=== PATIENT | female | born 1950 | race African-American/Black ===

== ENCOUNTER 2023-01-14 11:45 | Inpatient (IN) | payer MEDICARE ==
[~2023-01-14] VITALS: Ht 165.1 cm; Wt 54.4 kg
--- NOTE | 2023-01-14 12:00 | NUR ---
BIBS FOR WITNESSED SYNCOPE AT HOME. DID NOT HIT HEAD OR LOSE CONSCIOUSNESS. PATIENT CONFUSED PER BASELINE, TOLERATING WELL ON ROOM AIR. WILL CONTINUE TO MONITOR.
--- NOTE | 2023-01-14 12:39 | NUR ---
Caro morrow in [facility] - 01/14/23 at 1240 by JACQUELINE 20 g L AC
--- NOTE | 2023-01-14 12:40 | NUR ---
BLOOD SAMPLES OBTAINED
[2023-01-14 12:44] LABS: BASOPHILS % (AUTO) 0.3 % (0.0-2.0); EOSINOPHILS % (AUTO) 2.3 % (0.0-6.0); HEMATOCRIT 35 % (33-45); HEMOGLOBIN 11.4 g/dL (11.5-14.8); LYMPHOCYTES # (AUTO) 1.6 K/uL (0.8-4.8); LYMPHOCYTES % (AUTO) 40.6 % (20.0-44.0); MEAN CORPUSCULAR HGB CONC 33 g/dl (31.0-36.0); MEAN CORPUSCULAR VOLUME 85 fL (82-100); MONOCYTES # (AUTO) 0.2 K/uL (0.1-1.30); MONOCYTES % (AUTO) 6.2 % (2.0-12.0); NEUTROPHILS # (AUTO) 1.9 K/uL (1.8-8.9); NEUTROPHILS % (AUTO) 50.6 % (43.0-81.0); PLATELET COUNT (AUTO) 219 K/uL (150-450); RED BLOOD CELL COUNT(AUTO) 4.13 MIL/uL (4.0-5.2); WHITE BLOOD COUNT (AUTO) 3.8 K/uL (4.3-11.0)
[2023-01-14 13:00] LABS: ALANINE AMINOTRANSFERASE 18 U/L (12-78); ALBUMIN 3.7 g/dL (3.4-5.0); ALKALINE PHOSPHATASE 91 U/L (46-116); ASPARTATE AMINOTRANSFERASE 14 U/L (15-37); BILIRUBIN,DIRECT 0.1 mg/dL (0.0-0.2); BILIRUBIN,TOTAL 0.6 mg/dL (0.2-1.0); CALCIUM, SERUM 9.6 mg/dL (8.5-10.1); CARBON DIOXIDE 29 mmol/L (21-32); CHLORIDE 106 mmol/L (98-107); CREATININE 0.8 mg/dL (0.6-1.3); GLUCOSE 130 mg/dL (74-106); SODIUM SERUM 143 mmol/L (136-145); UREA NITROGEN, BLOOD 23 mg/dL (7-18)
[2023-01-14 13:08] LABS: POTASSIUM 2.8 mmol/L (3.5-5.1)
[2023-01-14] MEDS ORDERED: POTASSIUM CL. PREMIX PERIPHER. 50 ML ONE ×2 (13:28→14:53)
--- NOTE | 2023-01-14 13:29 | NUR ---
ROOM 306-2
[2023-01-14] MEDS: POTASSIUM CL. PREMIX PERIPHER. 50 ML IV SCH ×4 (13:53→19:11)
--- NOTE | 2023-01-14 14:50 | NUR ---
REPORT GIVEN TO IRINEO CAMILO
[2023-01-14] MEDS ORDERED: ONDANSETRON HCL/PF 4 MG/2 ML VIAL IVP PRN (16:00)
[2023-01-14] MEDS ORDERED: ENOXAPARIN SODIUM 40 MG/0.4 ML DISP.SYRIN SQ SCH (16:00)
[2023-01-14] MEDS ORDERED: ACETAMINOPHEN 325 MG TABLET PO PRN (16:00)
[2023-01-14] MEDS ORDERED: ZOLPIDEM TARTRATE 5 MG TABLET PO PRN (16:00)
[2023-01-14] MEDS ORDERED: MAGNESIUM HYDROXIDE 30 ML UDC PO PRN (16:00)
[2023-01-14] MEDS ORDERED: Z GUARD REMEDY 4 OZ OINT TP PRN (16:00)
[2023-01-14] MEDS ORDERED: MAG HYDROX/AL HYDROX/SIMETH 30 ML UDC PO PRN (16:00)
--- NOTE | 2023-01-14 16:00 | NUR ---
TOURISM RADIO PRESENTER NOTES: PT CAME TO UNIT VIA GURNEY, RECEIVED REPORT BY PHONE FROM DIRECTOR HUMAN SERVICES. PT IS AWAKE, A/OX1, RESPONDS TO NAME ONLY, SPOUSE AND DAUGHTER AT BEDSIDE. ON RA WITH NO S/S OF SOB, VITALS WNL. IV ACCESS AT R FA#20, RUNNING 10 MEQ OF KCL. PLACED ON TELE MONITOR, READING SR, HR= 55. SKIN ASSESSED, IS INTACT AND NO ISSUES NOTED. BELONGINGS CHECKED AND SIGNED. MADE PT COMFORTABLE, ORIENTED PT AND FAMILY TO STAFF AND ROOM. CALL LIGHT AND TABLE WITHIN EASY REACH, ENCOURAGED PT AND FAMILY TO PRESS CALL LIGHT FOR HELP. ALL SAFETY MEASURES IN PLACE, WILL CONT WITH PLAN OF CARE DURING SHIFT.
[2023-01-14] MEDS: IV NS 0.9% 1,000 ML IV PRN (17:21)
--- NOTE | 2023-01-14 19:30 | NUR ---
GUM REMOVER OPENING NOTES RECEIVED PT IN BED AWAKE, AND DAUGHTER AT BEDSIDE. A/O X0, PT VERY CONFUSED, VERBAL BUT DOESN'T RESPOND WELL TO QUESTIONS. ON RA WITH NO SOB OR DISTRESS NOTED. NO PAIN NOTED. ON SUBWAY CAR REPAIRER READING SB, 55 HR. RAC IV REMOVED BY PATIENT, NEW LINE LFA #20G PUT IN PLACE, PATENT, INTACT, FLUSHING WELL. COVERED TO PREVENT PT FROM PULLING. ABLE TO GO TO RESTROOM WITH ASSIST. SAFETY MEASURES IN PLACE: BED LOCKED AND IN LOW POSITION, SIDE RAILS UP X3, BED ALARM ON, CALL LIGHT WITHIN REACH. WILL CONTINUE TO MONITOR AND ASSIST.
[2023-01-14 20:00] VITALS: BP 144/69; TEMP 98.4; O2SAT 98
--- NOTE | 2023-01-14 20:10 | NUR ---
RN CLOSING NOTES: PT REMAINS STABLE ON RA, SPOUSE REMAINED AT BEDSIDE. IV ACCESS DISLODGED, PM RN WAS ABLE TO REINSERT, OTHERWISE NO CHANGE IN CONDITION, ENDORSED TO PM SHIFT.
--- NOTE | 2023-01-14 22:45 | NUR ---
RN NOTE: GAGE, DAUGHTER, AT BEDSIDE. PT ATE ONE OF THE LEAD ELECTRODES, ABLE TO TAKE OUT FROM MOUTH. PT ALSO REMOVED IV LINE AT START OF SHIFT. PER FAMILY, PT TRIES TO GET OUT OF BED AT HOME. TURNER MAJOR NOTIFIED, ORDERED BILATERAL SOFT WRIST RESTRAINTS. DAUGHTER AND ARE OK WITH ORDER.
[2023-01-15] VITALS (7 sets, daily range): BP systolic 123–151; BP diastolic 53–77; TEMP 97.6–98.4; O2SAT 97–100
--- NOTE | 2023-01-15 04:00 | NUR ---
RN NOTE: TRIED TO GET ORTHOSTATIC BP, PT UNABLE TO STAND AT THIS TIME DUE TREMORS AND PT VERY CONFUSED. ABLE TO GET BP SUPINE (132/76 BP, 53 HR) AND SITTING AFTER 5 MINS (152/76 BP, 53 HR). WILL ENDORSE TO DAY SHIFT NURSE FOR REPEAT WHEN FAMILY IS AT BEDSIDE.
[2023-01-15 06:10] LABS: CALCIUM, SERUM 9.2 mg/dL (8.5-10.1); CREATININE 0.7 mg/dL (0.6-1.3); MAGNESIUM 1.9 mg/dL (1.8-2.4); PHOSPHORUS 2.6 mg/dL (2.5-4.9); POTASSIUM 3.3 mmol/L (3.5-5.1)
[2023-01-15 06:22] LABS: THYROID STIMULATING HORMONE 1.575 uIU/mL (0.358-3.74)
[2023-01-15 06:28] LABS: BASOPHILS % (AUTO) 0.4 % (0.0-2.0); EOSINOPHILS % (AUTO) 1.5 % (0.0-6.0); HEMATOCRIT 32 % (33-45); HEMOGLOBIN 10.4 g/dL (11.5-14.8); LYMPHOCYTES # (AUTO) 2.4 K/uL (0.8-4.8); LYMPHOCYTES % (AUTO) 44.4 % (20.0-44.0); MEAN CORPUSCULAR HGB CONC 33 g/dl (31.0-36.0); MEAN CORPUSCULAR VOLUME 85 fL (82-100); MONOCYTES # (AUTO) 0.4 K/uL (0.1-1.30); MONOCYTES % (AUTO) 6.8 % (2.0-12.0); NEUTROPHILS # (AUTO) 2.5 K/uL (1.8-8.9); NEUTROPHILS % (AUTO) 46.9 % (43.0-81.0); PLATELET COUNT (AUTO) 194 K/uL (150-450); RED BLOOD CELL COUNT(AUTO) 3.77 MIL/uL (4.0-5.2); WHITE BLOOD COUNT (AUTO) 5.4 K/uL (4.3-11.0)
--- NOTE | 2023-01-15 07:00 | NUR ---
DIRECTOR HR COMMUNICATIONS CLOSING NOTES PT IN BED AWAKE. A/O X0, PT VERY CONFUSED, VERBAL BUT DOESN'T RESPOND WELL TO QUESTIONS, TRIED TO GET OUT OF BED. STABLE ON RA WITH NO SOB OR DISTRESS NOTED. NO PAIN NOTED. ON NUTRITION AIDE READING SB, 50'S HR DURING SHIFT. LFA #20G PATENT, INTACT, FLUSHING WELL, RUNNING NS @ 75 ML/HR. COVERED TO PREVENT PT FROM PULLING. ON BILATERAL SOFT WRIST RESTRAINTS, CIRCULATION CHECKED REGULARLY, WNL. ALL CARE PROVIDED AND MEDS TOLERATED WELL. SAFETY MEASURES MAINTAINED: BED LOCKED AND IN LOW POSITION, SIDE RAILS UP X3, BED ALARM ON, CALL LIGHT WITHIN REACH. WILL ENDORSE [place] TO DAY SHIFT NURSE.
[2023-01-15] MEDS ORDERED: PANTOPRAZOLE 40 MG TABLET.DR PO SCH (07:30)
--- NOTE | 2023-01-15 07:50 | NUR ---
ECONOMIC FORECASTER OPENING NOTE (DAY SHIFT) RECEIVED PT IN BED AWAKE, DAUGHTER AT BEDSIDE. A/O X 0, PT VERY CONFUSED, VERBAL BUT DOESN'T RESPOND WELL TO QUESTIONS. ON RA WITH NO SOB OR DISTRESS NOTED. NO PAIN NOTED. ON CORRECTIONS NURSE READING SB, 50s HR RANGE. NEW LINE LFA #20G IS INTACT, PATENT, AND INFUSING ns @ 75 MlS/HR WELL. COVERED iv SITE TO PREVENT PT FROM PULLING. ABLE TO GO TO RESTROOM WITH ASSIST. SAFETY MEASURES IN PLACE: BED LOCKED AND IN LOW POSITION, SIDE RAILS UP X 3, BED ALARM ON, CALL LIGHT WITHIN REACH. RELAEASED BILATERAL WRIST RESTRAINTS FOR ROM AND PATIENT'S COMFORT AND THEN REAPPLIED FOR SAFETY. WILL CONTINUE TO MONITOR AND ASSIST PATIENT PER MD's POC.
[2023-01-15] MEDS: IV NS 0.9% 1,000 ML IV PRN (09:00)
[2023-01-15] MEDS ORDERED: POTASSIUM CHLORIDE 20 MEQ TAB.PRT.SR PO SCH (09:00)
[2023-01-15] MEDS: POTASSIUM CHLORIDE 20 MEQ TAB.PRT.SR PO ONE ×2 (09:02→09:30)
[2023-01-15] MEDS ORDERED: DONE10TA44 PO (09:03)
[2023-01-15] MEDS ORDERED: AMLO10TA4 PO (09:03)
[2023-01-15] MEDS ORDERED: CHLO25TA2 PO (09:03)
[2023-01-15] MEDS ORDERED: GABA-532 PO (09:03)
[2023-01-15 11:01] LABS: IRON, SERUM 64 ug/dl (50-175); TOTAL IRON BINDING CAPACITY 212 ug/dl (250-450)
[2023-01-15 11:14] LABS: CHOLESTEROL 184 mg/dL (<200); FERRITIN 97 ng/mL (8-388); HDL CHOLESTEROL 79 mg/dL (40-60); LDL 83 mg/dL (0-99); TRIGLYCERIDES 46 mg/dL (30-150)
--- NOTE | 2023-01-15 15:17 | NUR ---
HOUSEKEEPING CLEANERDECAY CONTROL OPERATOR TO HOME NOTE PATIENT TOLERATED WELL THE REMOVAL OF THE PIV CATHETER FULLY INTACT FROM THE LEFT FOREARM WITHOUT ANY SIGNS OF COMPLICATIONS OF IV THERAPY. PATIENT'S DAUGHTER, GAGE, [id number] UNDERSTANDING OF THE HOME CARE DISCHARGE INSTRUCTIONS USING THE TEACH BACK METHOD IN HER OWN WORDS. PATIENT'S DAUGHTER REFUSED TO WAIT FOR PHYSICAL THERAPY EVALUATION OF PATIENT'S ABILITY TO SAFELY BE MOBILE AT HOME BEFORE DEPARTING THE [facility]. PATIENT'S DAUGHTER STATED THAT THE FAMILY UNDERSTANDS RISK OF FALLS AND WILL VIGILANTLY MONITOR AND ASSIST PATIENT WITH WALKING, TRANSFERS, AND POSITIONING AT HOME. PATIENT DEPARTED [facility] AT 15:05 HOURS WALKING WITH STEADY GAIT ACCOMPANIED BY HER DAUGHTER AND TO PRIVATE CAR BOUND FOR HER HOME.
== END 2023-01-15 15:30 | disposition home or self-care (01) | DRG 641 ==
LOC: ER 11:49 → TELE 14:31
PROVIDERS: ADMIT Student in an Organized Health Care Education/Training Program; ATTEND Student in an Organized Health Care Education/Training Program
DX: E86.0 Dehydration (principal); E87.6 Hypokalemia; R55 Syncope and collapse; I10 Essential (primary) hypertension; F03.90 Unspecified dementia, unspecified severity, without behavioral disturbance, psychotic disturbance, mood disturbance, and anxiety; R79.89 Other specified abnormal findings of blood chemistry; I35.0 Nonrheumatic aortic (valve) stenosis; D64.9 Anemia, unspecified; Z91.81 History of falling
CPT/HCPCS: 36415; 71045-TC; 80048-TC; 80061-TC; 80076-TC; 82728-TC; 82962-TC; 83540-TC; 83735-TC; 83880; 84100-TC; 84443-TC; 84484-TC; 85025-TC; 87081-TC; 93307-TC; A4223; G0378; J1650; J3480; J7030

== ENCOUNTER 2024-07-19 12:19 | Emergency (ER) | payer MEDICARE, BC ==
[~2024-07-19] VITALS: Ht 167.6 cm; Wt 47.6 kg
[~2024-07-19 12:19] MED LIST: AMLO10TA4 PO; DONE10TA44 PO; GABA-532 PO
[2024-07-19 12:21] VITALS: TEMP 97.9
[2024-07-19] MEDS: IV NS 0.9% 1,000 ML BAG IV ONE (12:52)
[2024-07-19 12:57] LABS: BASOPHILS % (AUTO) 0.3 % (0.0-2.0); EOSINOPHILS % (AUTO) 0.5 % (0.0-6.0); HEMATOCRIT 38 % (33-45); HEMOGLOBIN 11.8 g/dL (11.5-14.8); LYMPHOCYTES # (AUTO) 1.6 K/uL (0.8-4.8); LYMPHOCYTES % (AUTO) 23.1 % (20.0-44.0); MEAN CORPUSCULAR HEMOGLOBIN 28 PG (26.0-33.0); MEAN CORPUSCULAR HGB CONC 32 g/dl (31.0-36.0); MEAN CORPUSCULAR VOLUME 90 fL (82-100); MONOCYTES # (AUTO) 0.6 K/uL (0.1-1.30); MONOCYTES % (AUTO) 8.3 % (2.0-12.0); NEUTROPHILS # (AUTO) 4.7 K/uL (1.8-8.9); NEUTROPHILS % (AUTO) 67.8 % (43.0-81.0); PLATELET COUNT (AUTO) 182 K/uL (150-450); RED BLOOD CELL COUNT(AUTO) 4.17 MIL/uL (4.0-5.2); RED CELL DISTRIBUTION WIDTH 14.7 % (11.5-15.0); WHITE BLOOD COUNT (AUTO) 6.9 K/uL (4.3-11.0)
[2024-07-19 13:25] LABS: CALCIUM, SERUM 9.8 mg/dL (8.5-10.1); CARBON DIOXIDE 29 mmol/L (21-32); CHLORIDE 106 mmol/L (98-107); GLUCOSE 196 mg/dL (74-106); POTASSIUM 4.2 mmol/L (3.5-5.1); SODIUM SERUM 142 mmol/L (136-145); UREA NITROGEN, BLOOD 24 mg/dL (7-18)
[2024-07-19 13:34] LABS: LACTIC ACID 2.2 mmol/L (0.4-2.0)
[2024-07-19 13:38] LABS: ALANINE AMINOTRANSFERASE 28 U/L (12-78); ALBUMIN 3.9 g/dL (3.4-5.0); ALKALINE PHOSPHATASE 105 U/L (46-116); ASPARTATE AMINOTRANSFERASE 26 U/L (15-37); BILIRUBIN,DIRECT 0.1 mg/dL (0.0-0.2); BILIRUBIN,TOTAL 0.6 mg/dL (0.2-1.0); TOTAL PROTEIN, SERUM 7.2 g/dL (6.4-8.2)
[2024-07-19 14:12] VITALS: BP 118/65; O2SAT 99
== END 2024-07-19 14:59 | disposition left against medical advice (07) ==
LOC: ER 12:29
DX: R55 Syncope and collapse (principal); R00.1 Bradycardia, unspecified; I95.9 Hypotension, unspecified; E86.0 Dehydration; E87.20 Acidosis, unspecified; F03.90 Unspecified dementia, unspecified severity, without behavioral disturbance, psychotic disturbance, mood disturbance, and anxiety; I10 Essential (primary) hypertension; Z79.899 Other long term (current) drug therapy
CPT/HCPCS: 99285; 96360; 71045; 93005; 85025; 80048; 87040 ×2; 83605; 80076; 36415; 84484; 83880; J7030